=== PATIENT | male | born 1990 | race Caucasian/White ===

== ENCOUNTER 2022-11-20 03:32 | Emergency (ER) | payer BC, OTHER ==
[~2022-11-20] VITALS: Ht 188 cm; Wt 86.9 kg
[2022-11-20 07:53] VITALS: BP 135/67
== END 2022-11-20 07:55 | disposition left against medical advice (07) ==
LOC: ER 03:32
DX: K08.89 Other specified disorders of teeth and supporting structures (principal); Z53.21 Procedure and treatment not carried out due to patient leaving prior to being seen by health care provider